=== PATIENT | female | born 1975 | race Two or more races ===

== ENCOUNTER 2023-11-14 08:18 | Outpatient (CLI) | payer OTHER | END 2023-11-14 08:23 | disposition home or self-care (01) | LOC: SONOGRAMA 08:18 | DX: M25.511 Pain in right shoulder (principal) ==

== ENCOUNTER 2024-11-28 08:08 | Outpatient (CLI) | payer OTHER | END 2024-11-28 08:09 | disposition home or self-care (01) | LOC: NUCLEAR 08:08 | DX: R55 Syncope and collapse (principal) ==

== ENCOUNTER 2024-11-28 09:07 | Outpatient (CLI) | payer OTHER | END 2024-11-28 09:12 | disposition home or self-care (01) | LOC: MRI 09:07 | DX: R55 Syncope and collapse (principal) | CPT/HCPCS: 70551 ==

== ENCOUNTER 2024-12-01 10:40 | Outpatient (CLI) | payer OTHER | END 2024-12-01 10:41 | disposition home or self-care (01) | LOC: NUCLEAR 10:40 | DX: R55 Syncope and collapse (principal) ==

== ENCOUNTER 2025-08-18 12:55 | Outpatient (CLI) | payer OTHER | END 2025-08-18 12:56 | disposition home or self-care (01) | LOC: NUCLEAR 12:55 | DX: M85.80 Other specified disorders of bone density and structure, unspecified site (principal); M81.0 Age-related osteoporosis without current pathological fracture ==